=== PATIENT | female | born 1985 | race Hispanic/Latino ===

== ENCOUNTER 2017-11-08 14:21 | Emergency (ER) | payer OTHER, MEDICAID ==
[2017-11-09] MEDS ORDERED: VALIUM PO ONE (01:07)
[2017-11-09] MEDS ORDERED: TORADOL IM ONE (01:07)
--- NOTE | 2017-11-09 01:33 | XRay Report ---
FINAL REPORT EXAM: XR SPINE CERVICAL 2-3V HISTORY: NECK PAIN TECHNIQUE: Four views of the cervical spine were submitted. FINDINGS: The disc heights and alignment appear normal. The prevertebral soft tissues and C1-C2 articulation appear intact. IMPRESSION: Within normal limits.
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
[2017-11-09 02:49] LABS: Basophils % (Auto) 0.5 % (0.0-1.8); Eosinophils # (Auto) 0.5 K/mm3 (0.0-0.4); Eosinophils % (Auto) 5.4 % (0.0-4.3); Hematocrit 38.2 % (30.3-42.9); Hemoglobin 13.1 gm/dl (10.1-14.3); Mean Corpuscular HGB Conc 34 % (30-34); Mean Corpuscular Hemoglobin 29 pg (28-32); Mean Corpuscular Volume 85 fl (79-97); Monocytes # (Auto) 0.5 K/mm3 (0.0-0.8); Monocytes % (Auto) 6.5 % (0.0-7.3); Platelet Count 201 K/mm3 (140-440); Red Blood Count 4.48 M/mm3 (3.65-5.03); Red Cell Distribution Width 14.6 % (13.2-15.2)
[2017-11-09 03:16] LABS: Alanine Aminotransferase 10 units/L (7-56); Albumin 3.8 g/dL (3.9-5); BUN/Creatinine Ratio 17; Blood Urea Nitrogen 10 mg/dL (7-17); Calcium 8.8 mg/dL (8.4-10.2); Hemolysis Index 75
[2017-11-09] MEDS ORDERED: NACL ONE (03:58)
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
[2017-11-09 08:12] VITALS: BP 114/69
== END 2017-11-09 08:38 | disposition home or self-care (01) ==
LOC: ED 14:21
DX: S82.831A Other fracture of upper and lower end of right fibula, initial encounter for closed fracture (principal); S30.1XXA Contusion of abdominal wall, initial encounter; F32.9 Major depressive disorder, single episode, unspecified; F17.200 Nicotine dependence, unspecified, uncomplicated; V49.59XA Passenger injured in collision with other motor vehicles in traffic accident, initial encounter; Y93.89 Activity, other specified; Y92.89 Other specified places as the place of occurrence of the external cause; Y99.8 Other external cause status
CPT/HCPCS: 29505; 36415; 72040; 73562; 73590; 74177; 80053; 84703; 85025; 96372; 99284; J1885; Q9967

== ENCOUNTER 2019-07-02 05:57 | Emergency (ER) | payer MEDICAID, OTHER ==
[2019-07-02 06:30] LABS: Bilirubin,Urine NEG (Negative); Blood,Urine LG (Negative); Color,Urine Yellow (Yellow); Mucus,Urine FEW /HPF; Urobilinogen,Urine < 2.0 mg/dL (<2.0)
[2019-07-02 06:46] LABS: Basophils # (Auto) 0.1 K/mm3 (0.0-0.1); Basophils % (Auto) 0.8 % (0.0-1.8); Eosinophils # (Auto) 0.5 K/mm3 (0.0-0.4); Eosinophils % (Auto) 6.9 % (0.0-4.3); Hematocrit 35.8 % (30.3-42.9); Hemoglobin 12.1 gm/dl (10.1-14.3); Lymphocytes # (Auto) 2.9 K/mm3 (1.2-5.4); Lymphocytes % (Auto) 37.4 % (13.4-35.0); Mean Corpuscular HGB Conc 34 % (30-34); Mean Corpuscular Volume 85 fl (79-97); Monocytes # (Auto) 0.6 K/mm3 (0.0-0.8); Monocytes % (Auto) 7.4 % (0.0-7.3); Platelet Count 225 K/mm3 (140-440); Red Cell Distribution Width 15.6 % (13.2-15.2)
--- NOTE | 2019-07-02 07:15 | Emergency Department Report ---
ED Abdominal Pain HPI - General Chief Complaint: Abdominal Pain Stated Complaint: POSS MISCARRIAGE Time Seen by Provider: 07/02/19 07:01 Source: patient Mode of arrival: Ambulatory Limitations: No Limitations - History of Present Illness Initial Comments: Patient is a 34-year-old female presents to emergency room with lower abdominal cramping and vaginal bleeding 2 days. Patient states this may be a miscarriage due to her vaginal bleeding and so heavy. Patient states she doesn't know if she is . Patient states this is normally when she has her menstrual cycle. Patient states the pain is a 10 out of 10. Patient states as a cramping sensation. Patient states the pain is intermittent. Patient states the pain is better with rest and worse with movement. He is also complaining of ear fullness. Patient states she feels like there is fluid in her ears. Patient denies fever and chills. Patient denies ear pain. MD Complaint: abdominal pain -: Sudden, days(s) Location: suprapubic Radiation: none Migration to: no migration Severity: severe Severity scale (0 -10): 10 Quality: cramping Consistency: constant Improves With: rest Worsens With: movement Associated Symptoms: denies: nausea, vomiting, diarrhea, fever, chills, constipa tion, dysuria, hematemesis, hematochezia, melena, hematuria, anorexia - Related Data Previous Rx's Medication Instructions Recorded Last Taken Type Amoxicillin [Trimox CAP] 500 mg PO Q8H #21 capsule 10/10/13 Unknown Rx Fluconazole [Diflucan] 150 mg PO QDAY #1 tablet 10/10/13 Unknown Rx Naproxen Sodium (Nf) [Anaprox DS] 550 mg PO BID PRN #10 tablet 11/06/13 Unknown Rx methOCARBAMOL [Robaxin] 750 mg PO Q8H PRN #15 tablet 11/06/13 Unknown Rx Acetaminophen/Codeine [Tylenol 2 tab PO Q6H PRN #20 tab 11/09/17 Unknown Rx /Codeine # 3 tab] Fluticasone [Flonase] 2 spray NS QDAY #1 bottle 07/02/19 Unknown Rx Ibuprofen [Motrin 800 MG tab] 800 mg PO TID PRN #14 tablet 07/02/19 Unknown Rx Allergies Allergy/AdvReac Type Severity Reaction Status Date / Time No Known Allergies Allergy Verified 11/08/17 14:42 ED Review of Systems ROS: Stated complaint: POSS MISCARRIAGE Other details as noted in HPI Constitutional: denies: chills, fever Eyes: denies: eye pain, eye discharge, vision change ENT: denies: ear pain, throat pain Respiratory: denies: cough, shortness of breath, wheezing Cardiovascular: denies: chest pain, palpitations Endocrine: no symptoms reported Gastrointestinal: abdominal pain. denies: nausea, diarrhea Genitourinary: denies: urgency, dysuria, discharge Musculoskeletal: denies: back pain, joint swelling, arthralgia Skin: denies: rash, lesions Neurological: denies: headache, weakness, paresthesias Psychiatric: denies: anxiety, depression Hematological/Lymphatic: denies: easy bleeding, easy bruising ED Past Medical Hx - Past Medical History Previous Medical History?: Yes Additional medical history: DEPRESSION/ ANXIETY - Surgical History Past Surgical History?: Yes Additional Surgical History: . right arm--román - Family History Family history: no significant - Social History Smoking Status: Current Every Day Smoker Substance Use Type: Alcohol, Marijuana - Medications Home Medications: Home Medications Medication Instructions Recorded Confirmed Last Taken Type Amoxicillin [Trimox CAP] 500 mg PO Q8H #21 capsule 10/10/13 Unknown Rx Fluconazole [Diflucan] 150 mg PO QDAY #1 tablet 10/10/13 Unknown Rx Naproxen Sodium (Nf) [Anaprox DS] 550 mg PO BID PRN #10 tablet 11/06/13 Unknown Rx methOCARBAMOL [Robaxin] 750 mg PO Q8H PRN #15 tablet 11/06/13 Unknown Rx Acetaminophen/Codeine [Tylenol 2 tab PO Q6H PRN #20 tab 11/09/17 Unknown Rx /Codeine # 3 tab] Fluticasone [Flonase] 2 spray NS QDAY #1 bottle 07/02/19 Unknown Rx Ibuprofen [Motrin 800 MG tab] 800 mg PO TID PRN #14 tablet 07/02/19 Unknown Rx ED Physical Exam - General Limitations: No Limitations General appearance: alert, in no apparent distress - Head Head exam: Present: atraumatic, normocephalic - Eye Eye exam: Present: normal appearance, PERRL Pupils: Present: normal accommodation - ENT ENT exam: Present: normal exam, normal orophraynx, mucous membranes moist, TM's normal bilaterally, normal external ear exam - Neck Neck exam: Present: normal inspection - Respiratory Respiratory exam: Present: normal lung sounds bilaterally. Absent: respiratory distress - Cardiovascular Cardiovascular Exam: Present: regular rate, normal rhythm. Absent: systolic murmur, diastolic murmur, rubs, gallop - GI/Abdominal GI/Abdominal exam: Present: soft, normal bowel sounds. Absent: distended, tenderness, guarding - Extremities Exam Extremities exam: Present: normal inspection - Back Exam Back exam: Present: normal inspection - Neurological Exam Neurological exam: Present: alert, oriented X3 - Psychiatric Psychiatric exam: Present: normal affect, normal mood - Skin Skin exam: Present: warm, dry, intact, normal color. Absent: rash ED Course Vital Signs 07/02/19 06:01 Temperature 98.2 F Pulse Rate 75 Respiratory 18 Rate Blood Pressure 119/64 O2 Sat by Pulse 95 Oximetry - Reevaluation(s) Reevaluation #1: I discussed all results with patient. I discussed plan of care outpatient. Patient agrees with plan of care. Patient stable for discharge. Patient will be discharged home. Patient given discharge instructions. Patient was understanding of discharge instructions. 07/02/19 07:39 ED Medical Decision Making - Lab Data Result diagrams: 07/02/19 02:54 - Medical Decision Making is a 34-year-old female that presents emergency room with complaints of abdominal cramps and vaginal bleeding and ear fullness. Patient is symptom secondary to serous otitis media. Patient will be given Flonase and ibuprofen for this. Patient abdominal cramps secondary to menstrual cramps and normal.. Patient's labs unremarkable. Patient is not . Patient will be given ibuprofen for menstrual cramps. Patient instructed to follow up with [facility] and primary care. - Differential Diagnosis abdominal pain. Menstrual cramps. Critical care attestation.: If time is entered above; I have spent that time in minutes in the direct care of this critically ill patient, excluding procedure time. ED Disposition Clinical Impression: Abdominal cramps, Menstrual cramps Serous otitis media Qualifiers: Chronicity: acute Laterality: bilateral Recurrence: non-recurrent Qualified Code(s): H65.03 - Acute serous otitis media, bilateral Disposition: - TO HOME OR SELFCARE Is pt being admited?: No Does the pt Need Aspirin: No Condition: Stable Instructions: Abdominal Pain (ED), Dysmenorrhea (ED) Additional Instructions: Patient follow up with primary care in 2-3 days. Patient to follow up with [facility] in 2-3 days. Patient to return to ER if condition worsens. Patient to increase water. Patient to rest. Patient to take medicines as directed. He should take Tylenol or ibuprofen when necessary for pain. Prescriptions: Fluticasone [Flonase] 2 spray NS QDAY #1 bottle Ibuprofen [Motrin 800 MG tab] 800 mg PO TID PRN #14 tablet PRN Reason: Pain Referrals: RACHEL FONTANEZ MD [Primary Care Provider] - 2-3 Days Time of Disposition: 07:38
[2019-07-02 07:52] VITALS: BP 121/65
== END 2019-07-02 07:51 | disposition home or self-care (01) ==
LOC: ED 05:57
DX: H65.03 Acute serous otitis media, bilateral (principal); N94.6 Dysmenorrhea, unspecified; F32.9 Major depressive disorder, single episode, unspecified; F41.9 Anxiety disorder, unspecified; F17.200 Nicotine dependence, unspecified, uncomplicated; F12.10 Cannabis abuse, uncomplicated
CPT/HCPCS: 36415; 81001; 84703; 85025

== ENCOUNTER 2021-06-18 01:04 | Emergency (ER) | payer SELFPAY | END 2021-06-18 02:47 | disposition home or self-care (01) | LOC: ED 01:04 | DX: R11.10 Vomiting, unspecified (principal); Z53.21 Procedure and treatment not carried out due to patient leaving prior to being seen by health care provider ==